=== PATIENT | female | born 1990 | race African-American/Black ===

== ENCOUNTER 2018-05-20 16:04 | Emergency (ER) | payer SELFPAY ==
--- NOTE | 2018-05-20 17:02 | ER ---
Nurse's Notes [facility] Name: Claribel Shultz Age: 27 yrs Sex: Female : 1990 Arrival Date: 05/20/2018 Time: 16:08 Bed 15 Private MD: Diagnosis: Urinary tract infection, site not specified;Urethritis and urethral syndrome Presentation: 05/20 16:42 Presenting complaint: Patient states: "I think I have a UTI". Pt reports burning with aa5 urination x 2 days ago. Transition of care: patient was not received from another setting of care. Onset of symptoms was May 2018. Risk Assessment: Do you want to hurt yourself or someone else? Patient reports no desire to harm self or others. Initial Sepsis Screen: Does the patient meet any 2 criteria? No. Patient's initial sepsis screen is negative. Does the patient have a suspected source of infection? No. Patient's initial sepsis screen is negative. Care prior to arrival: None. 16:42 Acuity: RENE 4 aa5 16:42 Method Of Arrival: Ambulatory aa5 Triage Assessment: 16:46 General: Appears in no apparent distress. comfortable, Behavior is calm, cooperative, bp appropriate for age. 16:46 Pain: Complains of pain in pelvis. 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 - Social history:: Smoking status: Patient/guardian denies using tobacco. - Ebola Screening: : No symptoms or risks identified at this time. - Family history:: not pertinent. - Hospitalizations: : No recent hospitalization is reported. Screenin:52 Abuse screen: Denies threats or abuse. Denies injuries from another. Nutritional bp screening: No deficits noted. Tuberculosis screening: No symptoms or risk factors identified. Fall Risk None identified. Assessment: 16:52 General: SEE TRIAGE NOTE. bp 17:43 Reassessment: PT D/C HOME AMBULATORY, DX WITH UTI. bp Vital Signs: 16:42 BP 134 / 91; Pulse 73; Resp 18 S; Temp 97.6(TE); Pulse Ox 98% on R/A; Weight 100.24 kg aa5 (R); Height 5 ft. 10 in. (177.80 cm) (R); Pain 0/10; 17:44 BP 127 / 89; Pulse 75; Resp 14; Pulse Ox 98% ; bp 16:42 Body Mass Index 31.71 (100.24 kg, 177.80 cm) aa5 ED Course: 16:08 Patient arrived in ED. mr 16:40 Arm band placed on. aa5 16:42 Triage completed. aa5 16:45 Ger Figueroa, RN is Primary Nurse. bp 16:49 Ted Virk MD is Attending Physician. rn 16:52 Patient has correct armband on for positive identification. Bed in low position. Call bp light in reach. Side rails up X2. 16:57 Urine Culture Sent. iw 17:44 No provider procedures requiring assistance completed. Patient did not have IV access bp during this emergency room visit. Administered Medications: No medications were administered Outcome: 17:02 Discharge ordered by MD. rn 17:44 Discharged to home ambulatory. bp 17:44 Condition: stable 17:44 Discharge instructions given to patient, Instructed on discharge instructions, follow up and referral plans. medication usage, Demonstrated understanding of instructions, follow-up care, medications, Prescriptions given X 1. 17:46 Patient left the ED. bp Addendum: 05/23/2018 17:24 Addendum: Culture Results: Positive urine culture. No further action required. Bacteria s s sensitive to prescribed antibiotic. Signatures: Acevedo Nell whitley Virginie Gavin, RN RN Ted Virk MD MD rn Calderon, Audri, RN RN [facility] Mariah Zhang RN RN Ger Figueroa, DELIA RN bp Corrections: (The following items were deleted from the chart) 12 16:47 16:46 General: Appears in no apparent distress. comfortable, Behavior is calm, bp cooperative, appropriate for age, bp 17:13 16:57 Urine Culture+BA.LAB.BRZ drawn and sent. EDIN
--- NOTE | 2018-05-20 17:03 | EDPHYS ---
Physician Documentation [facility] Name: Claribel Shultz Age: 27 yrs Sex: Female : 1990 Arrival Date: 05/20/2018 Time: 16:08 Bed 15 Private MD: ED Physician Ted Virk HPI: 05/20 16:56 This 27 yrs old Black Female presents to ER via Ambulatory with complaints of Urinary rn Problem. 16:57 Onset: The symptoms/episode began/occurred 2 day(s) ago. Modifying factors: The rn symptoms are alleviated by nothing, the symptoms are aggravated by urinating. The patient has not experienced similar symptoms in the past. REports female, but born with male parts, + dysuria and increased frequency with blood when urinates, no flank or abd pain.. 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 - Social history:: Smoking status: Patient/guardian denies using tobacco. - Ebola Screening: : No symptoms or risks identified at this time. - Family history:: not pertinent. - Hospitalizations: : No recent hospitalization is reported. ROS: 16:59 Constitutional: Negative for fever, chills, and weight loss, Abdomen/GI: Negative for rn abdominal pain, nausea, vomiting, diarrhea, and constipation, Back: Negative for injury and pain, : + dysuria and bleeding, no scrotal pain or swelling, no penile pain or swelling Exam: 16:59 Constitutional: This is a well developed, well nourished patient who is awake, alert, rn and in no acute distress. Abdomen/GI: soft, non-tender Vital Signs: 16:42 BP 134 / 91; Pulse 73; Resp 18 S; Temp 97.6(TE); Pulse Ox 98% on R/A; Weight 100.24 kg aa5 (R); Height 5 ft. 10 in. (177.80 cm) (R); Pain 0/10; 17:44 BP 127 / 89; Pulse 75; Resp 14; Pulse Ox 98% ; bp 16:42 Body Mass Index 31.71 (100.24 kg, 177.80 cm) aa5 MDM: 16:49 Patient medically screened. rn 16:59 Differential diagnosis: UTI, urethritis. 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 Counseling: I had a detailed discussion with the patient and/or guardian regarding: the historical points, exam findings, and any diagnostic results supporting the discharge/admit diagnosis, lab results, the need for outpatient follow up, to return to the emergency department if symptoms worsen or persist or if there are any questions or concerns that arise at home. Special discussion: I discussed with the patient/guardian in detail that at this point there is no indication for admission to the hospital. It is understood, however, that if the symptoms persist or worsen the patient needs to return immediately for re-evaluation. 16:59 ED course: Pt reports recent unprotected sex but gets tested frequently, no discharge, rn reports not concerned for STI.. 05/20 16:55 Order name: Urine Culture bp 05/20 16:49 Order name: Urine Dipstick-Ancillary (obtain specimen); Complete Time: 16:55 rn 05/20 16:58 Order name: Urine Dipstick--Ancillary (enter results) bd 05/20 16:58 Order name: Urine --Ancillary (enter results) bd Administered Medications: No medications were administered Disposition: 05/20/18 17:02 Discharged to Home. Impression: Urinary tract infection, site not specified, Urethritis and urethral syndrome. - Condition is Stable. - Discharge Instructions: Urethritis, Adult, Urinary Tract Infection, Adult. - Prescriptions for Cipro 500 mg Oral Tablet - take 1 tablet by ORAL route every 12 hours for 10 days; 20 tablet. - Medication Reconciliation Form, Thank You Letter, Antibiotic Education, Prescription Opioid Use form. - Follow up: Private Physician; When: As needed; Reason: Recheck today's complaints, Re-evaluation by your physician. - Problem is new. - Symptoms have improved. Signatures: Dispatcher [employer] EDMS Ted Virk MD MD rn Calderon, Audri, RN RN aa5 Ger Figueroa RN RN bp Corrections: (The following items were deleted from the chart) 17:00 16:59 Constitutional: Negative for fever, chills, and weight loss, Abdomen/GI: Negative rn for abdominal pain, nausea, vomiting, diarrhea, and constipation, Back: Negative for injury and pain, : + dysuria and bleeding rn 17:13 16:56 Urine Culture+BA.LAB.BRZ ordered. [facility] EDMI 17:46 17:02 05/20/2018 17:02 Discharged to Home. Impression: Urinary tract infection, site bp not specified; Urethritis and urethral syndrome. Condition is Stable. Forms are Medication Reconciliation Form, Thank You Letter, Antibiotic Education, Prescription Opioid Use. Follow up: Private Physician; When: As needed; Reason: Recheck today's complaints, Re-evaluation by your physician. Problem is new. Symptoms have improved. rn
[2018-05-20 18:14] LABS: Urine Blood 3+ (NEG); Urine Glucose NEGATIVE (NEG); Urine Protein 2+ (NEG); Urine Specific Gravity 1.025 (1.005-1.030)
== END 2018-05-20 17:46 | disposition home or self-care (01) ==
LOC: ER 16:04
DX: N39.0 Urinary tract infection, site not specified (principal); N34.2 Other urethritis; N34.3 Urethral syndrome, unspecified
CPT/HCPCS: 81003; 81025; 87077; 87086; 87088; 87186; 99283

== ENCOUNTER 2018-10-28 05:03 | Emergency (ER) | payer SELFPAY ==
--- OUTSIDE RECORDS SUMMARY | 2018-10-28 05:06 | XMS REPORT ---
:1990 Author Organization [facility] Address Unavailable , Allergies, Adverse Reactions, Alerts Allergy Name Reaction Description Start Date Severity Status Provider No Known Allergies Manda Guzman CMA Conditions or Problems Problem Name Problem Onset Status Entry Provider Comment Standard Annotate Code Date Date Description Immunization V15.9 Active Chacha Unspecified update / Meghna PENA personal history presenting hazards to health Preventative V70.0 Active [place] Routine health care / Vahid aguilar [facility] medical examination at a health care facility HYPERTENSION 401.1 Active Chacha Benign /06/22 Meghna PENA essential hypertension VITAMIN D 268.9 Active Chacha Unspecified DEFICIENCY /06/22 Meghna PENA vitamin D deficiency OVERWEIGHT 278.02 Active Chacha Overweight /05 02/11 Meghna PENA Transgender 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 PREP SPIRONOL 1 SPIRONOLACTONE 36246576584 Active Chacha Active ACTONE TABLET Meghna PENA 50 MG BY TABS MOUTH TWO TIMES A DAY ESTRADIO 2 By ESTRADIOL [id number] Active Chacha Active L 2 MG Mouth Meghna PENA ORAL Twice TABLET a Day HECTOR 3 HECTOR 3 2,000 IUS DAILY Active Chacha Active 2,000 Meghna PENA IUS DAILY SPIRONOLACTONE TAKE SPIRONOLACTONE 058249 SPIRONOLACTONE Inactive 50 MG TABS ONE 50 MG TABS TABLET BY MOUTH TWO TIMES A DAY ASPIR-LOW 81 MG 1 By ASPIR-LOW 81 MG 356694 ASPIRIN Inactive ORAL TABLET Mouth ORAL TABLET DELAYED RELEASE Every DELAYED RELEASE Day SPIRONOLACTONE 1 By SPIRONOLACTONE 756210 SPIRONOLACTONE Inactive 100 MG ORAL Mouth 100 MG ORAL TABLET Twice a TABLET Day SPIRONOLACTONE TAKE SPIRONOLACTONE 52833390025 No Chacha Active 50 MG TABS ONE Longer Meghna MD TABLET Active BY MOUTH TWO TIMES A DAY ASPIR-LOW 81 MG 1 By ASPIRIN [id number] No Chacha Active ORAL TABLET Mouth Longer Meghna MD DELAYED RELEASE Every Active Day SPIRONOLACTONE 1 By SPIRONOLACTONE [id number] No Chacha Active 100 MG ORAL Mouth Longer Meghna MD TABLET Twice a Active Day VITAMIN D 1 By ERGOCALCIFEROL [id number] No Chacha Active (ERGOCALCIFEROL Mouth Longer Meghna MD ) [address]79 UNIT Every Active ORAL CAPSULE week Advance Directives Directive Description Start Date DISCUSSED - NO DECISION MADE Immunizations Vaccine Administration Date Value Standard Description hepatitis A immunization given as Hep hepatitis A vaccine, #1 A/Hep B # 1. unspecified formulation hepatitis B vaccine #1 given as Hep hepatitis B vaccine, given A/Hep B # 1. unspecified formulation Human Papilloma Virus given human papilloma virus Vaccine (Gardasil) (HPV 1) vaccine, quadrivalent Administration Date influenza immunization given influenza virus (Flu Vax) has been vaccine, unspecified administered formulation Twinrix, hepatitis A given hepatitis A and inactivated and hepatitis hepatitis B vaccine B (recombinant) vaccine, 1st dose influenza immunization given influenza virus (Flu Vax) has been vaccine, unspecified administered formulation Vital Signs Date Name Value Unit Range Description blood pressure, diastolic 84 mm[Hg] BP morales blood pressure, systolic 133 mm[Hg] BP sys height E&M 70 [in_us] Bdy height pulse rate E&M 68 /min Heart rate temperature E&M 97.7 [degF] Body temperature weight E&M 234 [lb_av] Weight Measured blood pressure, diastolic 90 mm[Hg] BP morales blood pressure, systolic 147 mm[Hg] BP sys height E&M 70 [in_us] Bdy height pulse rate E&M 71 /min Heart rate temperature E&M 97.8 [degF] Body temperature weight E&M 229 [lb_av] Weight Measured Diagnostic Results Date Name Value Unit Range Description Lab Report: Comp. Metabolic Panel (14), Lipid Panel, Testosterone,Free a ... - Chemistry prolactin, serum 17.3 ng/mL 4.0-15.2 Lab Report: CBC With Differential/Platelet, Comp. Metabolic Panel (14), ... - Chemistry thyroid stimulating hormone, serum 0.574 u[iU]/mL 0.450-4.500 Lab Report: Comp. Metabolic Panel (14), Lipid Panel, Testosterone,Free a ... - Chemistry very low density lipoproteins 34 mg/dL 5-40 testosterone, total 142 ng/dL 264-916 Lab Report: HBcAb+HBsAb+HBsAg+HCVAb, CBC With Differential/Platelet, Com ... - Chemistry hepatitis B surface antigen Negative Negative chloride, serum 102 mmol/L 96-106 Lab Report: CBC With Differential/Platelet, Comp. Metabolic Panel (14), ... - Chemistry triiodothyronine resin uptake 30 % 24-39 Append: Patient Navigation-PrEP Education (Session Notes) - Chemistry HIV rapid test results negative Lab Report: HBcAb+HBsAb+HBsAg+HCVAb, CBC With Differential/Platelet, Com ... - Microbiology hepatitis A antibody, total Negative Negative Lab Report: HBcAb+HBsAb+HBsAg+HCVAb, CBC With Differential/Platelet, Com ... - Chemistry urea nitrogen, blood 9 mg/dL 6-20 Lab Report: CBC With Differential/Platelet, Comp. Metabolic Panel (14), ... - Serology HIV-1/HIV-2 Ab, serum Non Reactive Non Reactive Lab Report: HBcAb+HBsAb+HBsAg+HCVAb, CBC With Differential/Platelet, Com ... - Hematology mean corpuscular hemoglobin 32.7 G/DL % 31.5-35.7 concentration, RBC erythrocyte (RBC) count 4.97 X10E6/UL 10*6/mm3 4.14-5.80 Lab Report: HBcAb+HBsAb+HBsAg+HCVAb, CBC With Differential/Platelet, Com ... - Serology hepatitis C antibody, serum <0.1 0.0-0.9 Lab Report: HBcAb+HBsAb+HBsAg+HCVAb, CBC With Differential/Platelet, Com ... - Chemistry Absolute Neutrophils 3.4 X10E3/UL 10*3/uL 1.4-7.0 Lab Report: Comp. Metabolic Panel (14), Lipid Panel, Testosterone,Free a ... - Chemistry LDL cholesterol, serum 107 mg/dL 0-99 estradiol, serum 109.9 pg/mL 7.6-42.6 Lab Report: HBcAb+HBsAb+HBsAg+HCVAb, CBC With Differential/Platelet, Com ... - Chemistry urea nitrogen/creatinine ratio, serum 10 9-20 Lab Report: HBcAb+HBsAb+HBsAg+HCVAb, CBC With Differential/Platelet, Com ... - Hematology mean corpuscular volume, RBC 83 fL 79-97 Lab Report: Comp. Metabolic Panel (14), Lipid Panel, Testosterone,Free a ... - Chemistry HDL cholesterol, serum 52 mg/dL >39 Lab Report: HBcAb+HBsAb+HBsAg+HCVAb, CBC With Differential/Platelet, Com ... - Hematology monocytes as percent of blood leukocytes 11 % Not Estab. Lab Report: HBcAb+HBsAb+HBsAg+HCVAb, CBC With Differential/Platelet, Com ... - Chemistry albumin/globulin ratio, serum 1.8 1.2-2.2 creatinine, serum 0.91 mg/dL 0.76-1.27 Lab Report: Comp. Metabolic Panel (14), Lipid Panel, Testosterone,Free a ... - Chemistry cholesterol, serum 193 mg/dL 100-199 Lab Report: HBcAb+HBsAb+HBsAg+HCVAb, CBC With Differential/Platelet, Com ... - Chemistry bilirubin, serum, total 0.9 mg/dL 0.0-1.2 Lab Report: HBcAb+HBsAb+HBsAg+HCVAb, CBC With Differential/Platelet, Com ... - Hematology Eosinophil Absolute Count 0.3 X10E3/UL 10*3/uL 0.0-0.4 Lab Report: Chlamydia/GC Amplification - Lab chlamydia DNA probe Negative Negative Lab Report: HBcAb+HBsAb+HBsAg+HCVAb, CBC With Differential/Platelet, Com ... - Chemistry aspartate aminotransferase (SGOT), serum 18 U/L 0-40 Lab Report: HBcAb+HBsAb+HBsAg+HCVAb, CBC With Differential/Platelet, Com ... - Hematology red blood cell distribution width 14.9 % 12.3-15.4 leukocyte count, blood 6.3 X10E3/UL 10*3/mm3 3.4-10.8 Lab Report: HBcAb+HBsAb+HBsAg+HCVAb, CBC With Differential/Platelet, Com ... - Chemistry potassium, serum 4.3 mmol/L 3.5-5.2 immature granulocytes, percentage of total cells, 0 % Not Estab. blood albumin, serum 4.6 g/dL 3.5-5.5 Lab Report: HBcAb+HBsAb+HBsAg+HCVAb, CBC With Differential/Platelet, Com ... - Hematology lymphocyte count, blood, automated 1.8 X10E3/UL 10*3/mm3 0.7- 3.1 Lab Report: Chlamydia/GC Amplification - Microbiology Neisseria gonorrhoeae DNA probe Negative Negative Lab Report: HBcAb+HBsAb+HBsAg+HCVAb, CBC With Differential/Platelet, Com ... - Hematology hematocrit, blood 41.3 % 37.5-51.0 Lab Report: HBcAb+HBsAb+HBsAg+HCVAb, CBC With Differential/Platelet, Com ... - Chemistry sodium, serum 144 mmol/L 134-144 Lab Report: HBcAb+HBsAb+HBsAg+HCVAb, CBC With Differential/Platelet, Com ... - Hematology neutrophils as percent of blood leukocytes 55 % Not Estab. basophils as percent of blood leukocytes 1 % Not Estab. Lab Report: HBcAb+HBsAb+HBsAg+HCVAb, CBC With Differential/Platelet, Com ... - Serology rapid plasma reagin antibody, serum Non Reactive Non Reactive Lab Report: HBcAb+HBsAb+HBsAg+HCVAb, CBC With Differential/Platelet, Com ... - Chemistry carbon dioxide, venous blood 25 mmol/L 20-29 Lab Report: HBcAb+HBsAb+HBsAg+HCVAb, CBC With Differential/Platelet, Com ... - Serology hepatitis B core antibody, total Negative Negative Lab Report: Comp. Metabolic Panel (14), Lipid Panel, Testosterone,Free a ... - Chemistry triglyceride, serum, fasting 169 mg/dL 0-149 Lab Report: HBcAb+HBsAb+HBsAg+HCVAb, CBC With Differential/Platelet, Com ... - Chemistry calcium, serum 9.4 mg/dL 8.7-10.2 alanine aminotransferase (SGPT), serum 12 U/L 0-44 Lab Report: CBC With Differential/Platelet, Comp. Metabolic Panel (14), ... - Chemistry free thyroxine index 1.7 1.2-4.9 Lab Report: HBcAb+HBsAb+HBsAg+HCVAb, CBC With Differential/Platelet, Com ... - Hematology mean corpuscular hemoglobin, RBC 27.2 pg 26.6-33.0 Lab Report: HBcAb+HBsAb+HBsAg+HCVAb, CBC With Differential/Platelet, Com ... - Chemistry protein, total, serum 7.2 g/dL 6.0-8.5 alkaline phosphatase, serum 79 U/L 39-117 Lab Report: HBcAb+HBsAb+HBsAg+HCVAb, CBC With Differential/Platelet, Com ... - Hematology hemoglobin, blood 13.5 g/dL 13.0-17.7 lymphocytes as percent of blood leukocytes 28 % Not Estab. Lab Report: CBC With Differential/Platelet, Comp. Metabolic Panel (14), ... - Chemistry hemoglobin A1C, blood, as % of total hemoglobin 5.5 % 4.8-5.6 Lab Report: HBcAb+HBsAb+HBsAg+HCVAb, CBC With Differential/Platelet, Com ... - Genetics/fertility eGFR if 134 mL/min/1.73m2 >59 Lab Report: HBcAb+HBsAb+HBsAg+HCVAb, CBC With Differential/Platelet, Com ... - Hematology basophil count, absolute 0.0 x10E3/uL 0.0-0.2 Lab Report: HBcAb+HBsAb+HBsAg+HCVAb, CBC With Differential/Platelet, Com ... - Chemistry globulin, serum 2.6 1.5-4.5 Estimated Glomerular Filtration Rate (calc) 116 mL/min/1.73m2 > 59 Lab Report: CBC With Differential/Platelet, Comp. Metabolic Panel (14), ... - Chemistry vitamin D 25-hydroxy, serum 16.0 ng/mL 30.0-100.0 Lab Report: Comp. Metabolic Panel (14), Lipid Panel, Testosterone,Free a ... - Chemistry testosterone, serum, free 7.4 pg/mL 9.3-26.5 Lab Report: HBcAb+HBsAb+HBsAg+HCVAb, CBC With Differential/Platelet, Com ... - Serology hepatitis B surface antibody Reactive Lab Report: CBC With Differential/Platelet, Comp. Metabolic Panel (14), ... - Chemistry thyroxine, serum, total 5.7 ug/dL 4.5-12.0 Lab Report: HBcAb+HBsAb+HBsAg+HCVAb, CBC With Differential/Platelet, Com ... - Hematology eosinophils as percent of blood leukocytes 5 % Not Estab. Lab Report: HBcAb+HBsAb+HBsAg+HCVAb, CBC With Differential/Platelet, Com ... - Chemistry blood glucose, random 90 mg/dL 65-99 Lab Report: HBcAb+HBsAb+HBsAg+HCVAb, CBC With Differential/Platelet, Com ... - Hematology monocyte count, blood, automated 0.7 X10E3/UL 10*3/uL 0.1-0.9 platelet count 230 X10E3/UL 10*3/mm3 150-379 Encounters Date Encounter Provider Code Facility Est Patient Detailed - Chacha Coffman MD CPT-29501 [facility] 09:29:38 CDT 87090 Est Patient Detailed - Chacha Coffman MD CPT-42166 [facility] 16:36:09 CDT 38645 Ofc Vst, Est Level III Chacha Coffman MD CPT-10023 [facility] 12:10:03 ORDER DESK CLERK Ofc Vst, New Level III Chacha Coffman MD CPT-62753 [facility] 10:41:37 CDT Procedures Code Procedure Name Date Entry Date Standard Description [facility] Education/Supportive 10:50:19 CDT Counseling CPT-09267 Twinrix - Adult 09:29:51 CDT CPT-74284 Gardasil (HPV) 9 - valent 09:29:51 CDT CPT-34674 INFLUENZA VACCINE QUADRIVALENT 3 YRS PLUS IM 09:29:51 CDT CPT-78436 Admin of Vaccine - Oral / Nasal - Each Add'l 09:29:51 CDT CPT-26408 Admin of Vaccine - Injection - Each Add'l 09:29:51 CDT CPT-58860 Admin of Vaccine - Injection - 1 09:29:51 CDT [facility] Health Education/Supportive 15:25:35 CD[facility] 14:55:14 CDT [facility] 09:56:16 CDT Counseling CPT-13581 Influenza - Adult - Injection 12:10:03 ORDER DESK CLERK CPT-92282 Admin of Vaccine - Injection - 1 12:10:03 ORDER DESK CLERK CPT-57271 Handling of specimen for transfer 10:41:37 CDT CPT-14171 Venipuncture 10:41:37 CDT
[2018-10-28] MEDS ORDERED: MECLIZINE HCL 12.5 MG TAB ONE (05:40)
[2018-10-28] MEDS ORDERED: ONDANSETRON 4 MG (ODT) TAB ONE (05:40)
--- NOTE | 2018-10-28 06:16 | EDPHYS ---
Physician Documentation [facility] Name: Claribel Shultz Age: 28 yrs Sex: Female : 1990 Arrival Date: 10/28/2018 Time: 05:06 Bed 6 Private MD: ED Physician Aman Guzman HPI: 10/28 05:21 This 28 yrs old Black Female presents to ER via Ambulatory with complaints of arian Dizziness, Decreased Appetite, Eye Pain, Nausea. 05:21 The patient presents with dizziness. Onset: The symptoms/episode began/occurred 2 arian day(s) ago. Context: occurred at an unknown location. Modifying factors: The symptoms are alleviated by closing eyes, holding head still, the symptoms are aggravated by movement of head. Associated signs and symptoms: The patient has no apparent associated signs or symptoms. Severity of symptoms: At their worst the symptoms were mild moderate in the emergency department the symptoms are unchanged. Patient's baseline: Neuro: alert and fully oriented. The patient has not experienced similar symptoms in the past. [employer]: 05:18 LMP N/A - gender changed as per patient cc3 Historical: - Allergies: 05:19 No Known Allergies; ak1 - Home Meds: 05:19 None [Active]; ak1 - PMHx: 05:19 None; ak1 - PSHx: 05:19 None; ak1 - Immunization history:: Adult Immunizations unknown. - Social history:: Smoking status: Patient/guardian denies using tobacco. - Ebola Screening: : No symptoms or risks identified at this time. - Family history:: not pertinent. ROS: 05:21 Constitutional: Negative for fever, chills, and weight loss, Eyes: Negative for injury, arian pain, redness, and discharge, Neck: Negative for injury, pain, and swelling, Cardiovascular: Negative for chest pain, palpitations, and edema, Respiratory: Negative for shortness of breath, cough, wheezing, and pleuritic chest pain, Abdomen/GI: Negative for abdominal pain, nausea, vomiting, diarrhea, and constipation, Back: Negative for injury and pain, : Negative for injury, bleeding, discharge, and swelling, MS/Extremity: Negative for injury and deformity, Skin: Negative for injury, rash, and discoloration, Neuro: Negative for headache, weakness, numbness, tingling, and seizure, Psych: Negative for depression, anxiety, suicide ideation, homicidal ideation, and hallucinations, Allergy/Immunology: Negative for hives, rash, and allergies, Endocrine: Negative for neck swelling, polydipsia, polyuria, polyphagia, and marked weight changes, Hematologic/Lymphatic: Negative for swollen nodes, abnormal bleeding, and unusual bruising. 05:21 Eyes: Positive for 05:21 ENT: Positive for sinus pain. 05:21 Neuro: Positive for dizziness, weakness. Exam: 05:21 Constitutional: This is a well developed, well nourished patient who is awake, alert, arian and in no acute distress. Head/Face: Normocephalic, atraumatic. Eyes: Pupils equal round and reactive to light, extra-ocular motions intact. Lids and lashes normal. Conjunctiva and sclera are non-icteric and not injected. Cornea within normal limits. Periorbital areas with no swelling, redness, or edema. ENT: Nares patent. No nasal discharge, no septal abnormalities noted. Tympanic membranes are normal and external auditory canals are clear. Oropharynx with no redness, swelling, or masses, exudates, or evidence of obstruction, uvula midline. Mucous membranes moist. Neck: Trachea midline, no thyromegaly or masses palpated, and no cervical lymphadenopathy. Supple, full range of motion without nuchal rigidity, or vertebral point tenderness. No Meningismus. Chest/axilla: Normal chest wall appearance and motion. Nontender with no deformity. No lesions are appreciated. Cardiovascular: Regular rate and rhythm with a normal S1 and S2. No gallops, murmurs, or rubs. Normal PMI, no JVD. No pulse deficits. Respiratory: Lungs have equal breath sounds bilaterally, clear to auscultation and percussion. No rales, rhonchi or wheezes noted. No increased work of breathing, no retractions or nasal flaring. Abdomen/GI: Soft, non-tender, with normal bowel sounds. No distension or tympany. No guarding or rebound. No evidence of tenderness throughout. Back: No spinal tenderness. No costovertebral tenderness. Full range of motion. Female : Normal external genitalia. Skin: Warm, dry with normal turgor. Normal color with no rashes, no lesions, and no evidence of cellulitis. MS/ Extremity: Pulses equal, no cyanosis. Neurovascular intact. Full, normal range of motion. Neuro: Awake and alert, GCS 15, oriented to person, place, time, and situation. Cranial nerves II-XII grossly intact. Motor strength 5/5 in all extremities. Sensory grossly intact. Cerebellar exam normal. Normal gait. Psych: Awake, alert, with orientation to person, place and time. Behavior, mood, and affect are within normal limits. Vital Signs: 05:17 BP 135 / 86; Pulse 97; Resp 16; Temp 99.1(TE); Pulse Ox 97% on R/A; Weight 102.06 kg ak1 (R); Height 5 ft. 10 in. (177.80 cm) (R); Pain 8/10; 06:30 BP 125 / 74; Pulse 83; Resp 19 S; Temp 99(O); Pulse Ox 100% on R/A; cc3 07:56 BP 127 / 70; Pulse 86; Resp 18; Temp 98.0; Pulse Ox 99% on R/A; ph 05:17 Body Mass Index 32.28 (102.06 kg, 177.80 cm) ak1 MDM: 05:18 Patient medically screened. [facility] 05:23 Data reviewed: vital signs, nurses notes, lab test result(s), radiologic studies, CT arian scan. 10/28 06:27 Order name: Urine Dipstick--Ancillary (enter results) [facility] 10/28 06:28 Order name: Urine Dipstick-Ancillary [facility] 10/28 05:21 Order name: CT Head Brain wo Cont [facility] 10/28 05:25 Order name: EKG; Complete Time: 05:25 [facility] 10/28 05:21 Order name: Urine Dipstick-Ancillary (obtain specimen); Complete Time: 06:33 [facility] 10/28 05:25 Order name: EKG - Nurse/Tech; Complete Time: 05:46 [facility] Administered Medications: 05:25 Drug: Meclizine 50 mg Route: PO; cc3 06:00 Follow up: Response: No adverse reaction; Other; dizziness decreased cc3 05:25 Drug: Zofran 4 mg Route: PO; cc3 06:00 Follow up: Response: No adverse reaction; Nausea is decreased cc3 Disposition: 10/28/18 06:16 Discharged to Home. Impression: Dizziness and giddiness, Vertiginous syndromes in diseases classified elsewhere, unspecified ear. - Condition is Stable. - Discharge Instructions: Benign Positional Vertigo, Dizziness, Near-Syncope, Vertigo, Vertigo, Ilke-vg-Sxxa, Aspirin and Your Heart, Allergies, Kbsl-pj-Icrx, Dizziness, Rpbw-ln-Rnnw. - Prescriptions for Meclizine 25 mg Oral Tablet - take 1 tablet by ORAL route every 8 hours As needed; 30 tablet. Zofran 4 mg Oral Tablet - take 1 tablet by ORAL route every 12 hours As needed; 20 tablet. - Medication Reconciliation Form, Thank You Letter, Antibiotic Education, Prescription Opioid Use form. - Follow up: Private Physician; When: 2 - 3 days; Reason: Recheck today's complaints, Continuance of care, Re-evaluation by your physician. - Problem is new. - Symptoms have improved. Signatures: Dispatcher [employer] EDAman Szymanski MD MD cha Krenek, Amber RN RN ak1 Milli Riley RN RN ph sIabel Marshall cc3 Corrections: (The following items were deleted from the chart) 07:57 06:16 10/28/2018 06:16 Discharged to Home. Impression: Dizziness and giddiness; ph Vertiginous syndromes in diseases classified elsewhere, unspecified ear. Condition is Stable. Discharge Instructions: Benign Positional Vertigo, Dizziness, Near-Syncope, Vertigo, Vertigo, Apyi-nn-Pdjs, Aspirin and Your Heart, Allergies, Nonb-xk-Rxyh, Dizziness, Smid-kl-Vykp. Prescriptions for Meclizine 25 mg Oral Tablet - take 1 tablet by ORAL route every 8 hours As needed; 30 tablet, Zofran 4 mg Oral Tablet - take 1 tablet by ORAL route every 12 hours As needed; 20 tablet. and Forms are Medication Reconciliation Form, Thank You Letter, Antibiotic Education, Prescription Opioid Use. Follow up: Private Physician; When: 2 - 3 days; Reason: Recheck today's complaints, Continuance of care, Re-evaluation by your physician. Problem is new. Symptoms have improved. arian
--- NOTE | 2018-10-28 06:16 | ER ---
Nurse's Notes [facility] Name: Claribel Shultz Age: 28 yrs Sex: Female : 1990 Arrival Date: 10/28/2018 Time: 05:06 Bed 6 Private MD: Diagnosis: Dizziness and giddiness;Vertiginous syndromes in diseases classified elsewhere, unspecified ear Presentation: 10/28 05:17 Presenting complaint: Patient states: headache, dizziness X3days. pt c/o pressure ak1 behind the eyes. Transition of care: patient was not received from another setting of care. Onset of symptoms is unknown. Risk Assessment: Do you want to hurt yourself or someone else? Patient reports no desire to harm self or others. Initial Sepsis Screen: Does the patient meet any 2 criteria? No. Patient's initial sepsis screen is negative. Does the patient have a suspected source of infection? No. Patient's initial sepsis screen is negative. Care prior to arrival: None. 05:17 Method Of Arrival: Ambulatory ak1 05:17 Acuity: RENE 3 ak1 Triage Assessment: 05:20 General: Appears in no apparent distress. Behavior is calm, cooperative. 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 - Social history:: Smoking status: Patient/guardian denies using tobacco. - Ebola Screening: : No symptoms or risks identified at this time. - Family history:: not pertinent. Screenin:18 Abuse screen: Denies threats or abuse. Denies injuries from another. Nutritional cc3 screening: No deficits noted. Tuberculosis screening: No symptoms or risk factors identified. Fall Risk Ambulatory Aid- None/Bed Rest/Nurse Assist (0 pts). Gait- Normal/Bed Rest/Wheelchair (0 pts) Mental Status- Oriented to own ability (0 pts). Assessment: 05:18 General: Appears in no apparent distress. comfortable, Behavior is calm, cooperative, cc3 appropriate for age. Pain: Complains of pain in bilateral eye pain. Neuro: Level of Consciousness is awake, alert, obeys commands, Oriented to person, place, time, situation, Appropriate for age. Cardiovascular: Denies chest pain, Patient's skin is warm and dry. Respiratory: Airway is patent Respiratory effort is even, unlabored, Respiratory pattern is regular, symmetrical. GI: Abdomen is round non-distended. : No signs and/or symptoms were reported regarding the genitourinary system. EENT: Eyes no abnormality found. Sclera/Cornea are clear in bilateral. Derm: No signs and/or symptoms reported regarding the dermatologic system. Musculoskeletal: Circulation, motion, and sensation intact. Range of motion: intact in all extremities. 06:05 Reassessment: Patient appears in no apparent distress at this time. Patient and/or cc3 family updated on plan of care and expected duration. Pain level reassessed. Patient is alert, oriented x 3, equal unlabored respirations, skin warm/dry/pink. Patient came back from CT scan department, awaiting result. 06:16 Reassessment: Patient appears in no apparent distress at this time. Patient and/or cc3 family updated on plan of care and expected duration. Pain level reassessed. Patient is alert, oriented x 3, equal unlabored respirations, skin warm/dry/pink. Dr. Guzman ordered patient for discharge home once CT scan result is available. Patient denies pain at this time. Patient states symptoms have improved. 07:56 Reassessment: Patient appears in no apparent distress at this time. Patient and/or ph family updated on plan of care and expected duration. Pain level reassessed. Patient is alert, oriented x 3, equal unlabored respirations, skin warm/dry/pink. Pt d/c home w. prescriptions Patient states symptoms have improved. Vital Signs: 05:17 BP 135 / 86; Pulse 97; Resp 16; Temp 99.1(TE); Pulse Ox 97% on R/A; Weight 102.06 kg ak1 (R); Height 5 ft. 10 in. (177.80 cm) (R); Pain 8/10; 06:30 BP 125 / 74; Pulse 83; Resp 19 S; Temp 99(O); Pulse Ox 100% on R/A; cc3 07:56 BP 127 / 70; Pulse 86; Resp 18; Temp 98.0; Pulse Ox 99% on R/A; ph 05:17 Body Mass Index 32.28 (102.06 kg, 177.80 cm) ak1 ED Course: 05:06 Patient arrived in ED. es 05:18 Aman Guzman MD is Attending Physician. arian 05:18 Isabel Marshall is Primary Nurse. cc3 05:18 Triage completed. ak1 05:19 Arm band placed on Patient placed in an exam room, on a stretcher, on pulse oximetry, ak1 Patient notified of wait time. 05:19 Patient has correct armband on for positive identification. Bed in low position. Call ak1 light in reach. Side rails up X 1. Pulse ox on. NIBP on. 06:10 CT completed. Patient tolerated procedure well. Patient moved to CT via stretcher. Patient moved back from CT. 06:16 CT Head Brain wo Cont In Process Unspecified. EDMS 07:00 Report given to RN Milli and DELIA Cyr. cc3 07:46 Milli Riley RN is Primary Nurse. ph 07:54 No provider procedures requiring assistance completed. Patient did not have IV access ph during this emergency room visit. Administered Medications: 05:25 Drug: Meclizine 50 mg Route: PO; cc3 06:00 Follow up: Response: No adverse reaction; Other; dizziness decreased cc3 05:25 Drug: Zofran 4 mg Route: PO; cc3 06:00 Follow up: Response: No adverse reaction; Nausea is decreased cc3 Outcome: 06:16 Discharge ordered by . [facility] 07:55 Discharged to home ambulatory. ph 07:55 Condition: improved 07:55 Discharge instructions given to patient, Instructed on discharge instructions, follow up and referral plans. medication usage, Demonstrated understanding of instructions, follow-up care, medications, Prescriptions given X 2. 07:57 Patient left the ED. ph Signatures: Dispatcher [employer] EDNY Aman Guzman MD MD cha Salyer, Loy Gilmore Amber RN RN ak Milli Riley, DELIA RN Isabel Marshall cc3
[2018-10-28 07:06] LABS: Urine Blood NEGATIVE (NEG); Urine Glucose NEGATIVE (NEG); Urine Protein 1+ (NEG); Urine pH 5.5 (5.0-7.0)
--- NOTE | 2018-10-28 09:24 | RAD REPORT ---
EXAM DESCRIPTION: CT - Head Brain Wo Cont - 10/28/2018 9:02 am CLINICAL HISTORY: The patient is 28 years old and is Female; DIZZINESS TECHNIQUE: Axial computed tomography images of the head/brain without intravenous contrast. Sagitt al and coronal reformatted images were created and reviewed. This CT exam was performed using one o r more of the following dose reduction techniques: automated exposure control, adjustment of the mA and/or kV according to patient size, and/or use of iterative reconstruction technique. COMPARISON: No relevant prior studies available. FINDINGS: BRAIN: Unremarkable. The petersen-white matter differentiation is preserved . No hemorrhag e. No significant white matter disease. No edema. No extra-axial fluid collections. VENTRICLES: Unremarkable. No ventriculomegaly. BONES/JOINTS: No acute fracture. SOFT TISSUES: Unremarkable. SINUSES: Unremarkable as visualized. No acute sinusitis. MASTOID AIR CELLS: Unremarkable as visualized. No mastoid effusion. IMPRESSION: No acute intracranial findings. Electronically signed by: Carmen Chamberlain MD 10/28/2018 6:17 AM CDT Due to temporary technical issues with the PACS/Fluency reporting system, reports are being signed by the in house radiologist as a courtesy to ensure prompt reporting. The interpreting radiologist is f ully responsible for the content of the report.
--- NOTE | 2018-10-28 10:26 | EKG ---
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
== END 2018-10-28 07:57 | disposition home or self-care (01) ==
LOC: ER 05:03
DX: R42 Dizziness and giddiness (principal); H82.9 Vertiginous syndromes in diseases classified elsewhere, unspecified ear
CPT/HCPCS: 70450; 81003; 93005; 99284

== ENCOUNTER 2019-07-17 23:43 | Emergency (ER) | payer SELFPAY ==
--- OUTSIDE RECORDS SUMMARY | 2019-07-17 23:45 | XMS REPORT ---
:1990 Author Organization [facility] Address Unavailable , Allergies, Adverse Reactions, Alerts Allergy Name Reaction Description Start Date Severity Status Provider No Known Allergies Manda Guzman CMA Conditions or Problems Problem Name Problem Onset Status Entry Provider Comment Standard Annotate Code Date Date Description Immunization V15.9 Active Chacha Unspecified update / Meghna PENA personal history presenting hazards to health Preventative V70.0 Active [place] Routine health care / Vahid aguilar [facility] medical examination at a health care facility HYPERTENSION 401.1 Active Chacha Benign /06/22 Meghna PENA essential hypertension VITAMIN D 268.9 Active Chacha Unspecified DEFICIENCY /06/22 Meghna PENA vitamin D deficiency OVERWEIGHT 278.02 Active Chacha Overweight /05 02/11 Meghna PENA Transgender V49.89 2013 Chacha Other 12/15 Meghna PENA specified conditions influencing health status GENDER 302.85 Inactive Chacha Gender IDENTITY 02/11 Meghna PEAN identity DISORDER, 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 PREP SPIRONOL 1 SPIRONOLACTONE 20619020220 Active Chacha Active ACTONE TABLET Meghna PENA 50 MG BY TABS MOUTH TWO TIMES A DAY ESTRADIO 2 By ESTRADIOL 47803431368 Active Chacha Active L 2 MG Mouth Meghna EPNA ORAL Twice TABLET a Day HECTOR 3 HECTOR 3 2,000 IUS DAILY Active Chacha Active 2,000 Meghna PENA IUS DAILY SPIRONOLACTONE TAKE SPIRONOLACTONE 805236 SPIRONOLACTONE Inactive 50 MG TABS ONE 50 MG TABS TABLET BY MOUTH TWO TIMES A DAY ASPIR-LOW 81 MG 1 By ASPIR-LOW 81 MG 137860 ASPIRIN Inactive ORAL TABLET Mouth ORAL TABLET DELAYED RELEASE Every DELAYED RELEASE Day SPIRONOLACTONE 1 By SPIRONOLACTONE 132996 SPIRONOLACTONE Inactive 100 MG ORAL Mouth 100 MG ORAL TABLET Twice a TABLET Day SPIRONOLACTONE TAKE SPIRONOLACTONE 87633119064 No Chacha Active 50 MG TABS ONE Longer Meghna MD TABLET Active BY MOUTH TWO TIMES A DAY ASPIR-LOW 81 MG 1 By ASPIRIN [id number] No Chacha Active ORAL TABLET Mouth Longer Meghna MD DELAYED RELEASE Every Active Day SPIRONOLACTONE 1 By SPIRONOLACTONE 61835287646 No Chacha Active 100 MG ORAL Mouth Longer Meghna MD TABLET Twice a Active Day VITAMIN D 1 By ERGOCALCIFEROL [id number] No Chacha Active (ERGOCALCIFEROL Mouth Longer Meghna MD ) 93557 UNIT Every Active ORAL CAPSULE week Advance [...] Est Patient Detailed - Chacha Coffman MD CPT-00888 [facility] Adult Medicine 09:29:38 CDT 18460 Est Patient Detailed - Chacha Coffman MD CPT-84780 [facility] Adult Medicine 16:36:09 CDT 77809 Ofc Vst, Est Level III Chacha Coffman MD CPT-42390 [facility] Adult Medicine 12:10:03 [employer]LL [employer]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 Ofc Vst, New Level III Chacha Coffman MD CPT-96848 [facility] Adult Medicine 10:41:37 CDT Procedures Code Procedure Name Date Entry Date Standard Description [facility] Education/Supportive 10:50:19 CDT Counseling CPT-40987 Twinrix - Adult 09:29:51 CDT CPT-41235 Gardasil (HPV) 9 - valent 09:29:51 CDT CPT-62893 INFLUENZA VACCINE QUADRIVALENT 3 YRS PLUS IM 09:29:51 CDT CPT-93201 Admin of Vaccine - Oral / Nasal - Each Add'l 09:29:51 CDT CPT-18693 Admin of Vaccine - Injection - Each Add'l 09:29:51 CDT CPT-95167 Admin of Vaccine - Injection - 1 09:29:51 CDT [facility] Health Education/Supportive 15:25:35 CDT [facility] 14:55:14 CDT [facility]/Supportive 09:56:16 CDT Counseling CPT-72125 Influenza - Adult - Injection 12:10:03 [employer]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
[2019-07-18] MEDS ORDERED: NA CHLORIDE 0.9% 1,000 ML ONE (00:40)
[2019-07-18 01:23] LABS: Absolute Lymphocytes (CBC) 1.4 K/uL (0.7-4.9); Basophils % 0.4 % (0-1.3); Hematocrit 40.5 % (36.0-45.0); Lymphocytes % 12.5 % (15.3-44.8); RBC Red Blood Cell Count 5.03 M/uL (3.86-4.86)
[2019-07-18 01:34] LABS: Bilirubin Direct 0.2 mg/dL (0-0.2); Bilirubin Total 0.8 mg/dL (0.2-1.0); Protein, Total 8.8 g/dL (6.4-8.2)
[2019-07-18] MEDS ORDERED: CEFTRIAXONE/SWI 1gm 1 GM/10 ML SYR ONE (02:11)
[2019-07-18] MEDS ORDERED: POTASSIUM 25 MEQ EFFERV TAB ONE (02:11)
[2019-07-18] MEDS ORDERED: ONDANSETRON 4 MG/2 ML VIAL ONE (02:24)
--- NOTE | 2019-07-18 02:40 | ER ---
Nurse's Notes [facility] Name: Claribel Shultz Age: 29 yrs Sex: Female : 1990 Arrival Date: 07/17/2019 Time: 23:45 Bed 30 Private MD: Diagnosis: Acute pharyngitis Presentation: 07/17 23:59 Presenting complaint: Patient states: she woke up Friday dizzy, has no appetite, has bb diarrhea and feels dehydrated, she fell from the dizziness and is feeling some minor pain under left rib area. Transition of care: patient was not received from another setting of care. Onset of symptoms was July 11, 2019. Risk Assessment: Do you want to hurt yourself or someone else? Patient reports no desire to harm self or others. Initial Sepsis Screen: Does the patient meet any 2 criteria? No. Patient's initial sepsis screen is negative. Does the patient have a suspected source of infection? No. Patient's initial sepsis screen is negative. Care prior to arrival: None. 23:59 Method Of Arrival: Ambulatory bb 23:59 Acuity: RENE 3 bb Triage Assessment: 07/18 00:45 General: Appears in no apparent distress. well groomed, Behavior is calm. 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 - Coronavirus screen:: The patient has NOT traveled to [place], [place], or [place] in the past 14 days. Proceed with normal triage process as indicated. - Social history:: Smoking status: Patient denies any tobacco usage or history of. - Ebola Screening: : No symptoms or risks identified at this time. Screenin:45 Abuse screen: Denies threats or abuse. Nutritional screening: No deficits noted. jv1 Tuberculosis screening: No symptoms or risk factors identified. 02:34 Fall Risk Fall in past 12 months (25 points). jv1 Assessment: 00:15 General: Appears in no apparent distress. comfortable, well groomed, well developed, jv1 Behavior is calm, cooperative, appropriate for age. Pain: Complains of pain in under left rib Pain does not radiate. Pain currently is 5 out of 10 on a pain scale. Quality of pain is described as aching, tender. Neuro: Level of Consciousness is awake, alert, obeys commands, Oriented to person, place, time, situation, Appropriate for age. Cardiovascular: Denies chest pain, Heart tones S1 S2 Capillary refill < 3 seconds. Respiratory: Airway is patent Respiratory effort is even, unlabored, Respiratory pattern is regular, symmetrical, Breath sounds are clear bilaterally. GI: Abdomen is round non-distended, Bowel sounds present X 4 quads. Abd is soft and non tender X 4 quads. : No signs and/or symptoms were reported regarding the genitourinary system. EENT: No signs and/or symptoms were reported regarding the EENT system. Derm: No signs and/or symptoms reported regarding the dermatologic system. Musculoskeletal: Circulation, motion, and sensation intact. Capillary refill < 3 seconds. 01:15 Reassessment: Patient appears in no apparent distress at this time. No changes from jv1 previously documented assessment. Patient and/or family updated on plan of care and expected duration. Pain level reassessed. Patient is alert, oriented x 3, equal unlabored respirations, skin warm/dry/pink. 02:32 Reassessment: No changes from previously documented assessment. Patient and/or family jv1 updated on plan of care and expected duration. Pain level reassessed. Patient is alert, oriented x 3, equal unlabored respirations, skin warm/dry/pink. Patient denies pain at this time. Patient states feeling better. Patient states symptoms have improved. Vital Signs: 00:02 BP 106 / 92; Pulse 98; Resp 16 S; Temp 99.3(O); Pulse Ox 100% on R/A; Weight 104.33 kg bb (R); Height 5 ft. 10 in. (177.80 cm) (R); Pain 4/10; 02:33 BP 132 / 80; Pulse 90; Resp 18; Temp 99.2; Pulse Ox 99% ; Pain 4/10; jv1 02:33 BP 125 / 82; Pulse 84; Resp 18; Temp 99.2; Pulse Ox 100% ; Pain 2/10; jv1 00:02 Body Mass Index 33.00 (104.33 kg, 177.80 cm) bb ED Course: 07/17 23:45 Patient arrived in ED. jg7 23:48 Faizan Nixon MD is Attending Physician. tw4 23:57 Strep Sent. jp3 23:57 Flu Sent. jp3 23:58 Flu and/or RSV swab sent to lab. Strep swab sent to lab. Patient maintains SpO2 jp3 saturation greater than 95% on room air. 23:59 Patient has correct armband on for positive identification. Placed in gown. Bed in low jp3 position. Call light in reach. Side rails up X 1. Verbal reassurance given. Pulse ox on. NIBP on. 07/18 00:02 Triage completed. bb 00:05 Arm band placed on Patient placed in an exam room, on a stretcher, on pulse oximetry. bb 02:34 No provider procedures requiring assistance completed. jv1 03:06 IV discontinued, intact, bleeding controlled, No redness/swelling at site. Pressure jv1 dressing applied. Administered Medications: 00:38 Drug: NS 0.9% 1000 ml Route: IV; Rate: 1 bolus; Site: left antecubital; jv1 02:05 Follow up: Response: No adverse reaction; IV Status: Completed infusion jv1 02:12 Drug: Potassium Effervescent Tablet 50 mEq Route: PO; jv1 02:32 Follow up: Response: No adverse reaction jv1 02:13 Drug: Rocephin - (cefTRIAXone) 1 grams Route: IVPB; Infused Over: 30 mins; Site: left jv1 antecubital; 02:31 Follow up: Response: No adverse reaction; IV Status: Completed infusion jv1 02:22 Drug: Zofran 4 mg Route: IVP; Site: left antecubital; jv1 02:53 Follow up: Response: No adverse reaction; Nausea is decreased jv1 Outcome: 02:39 Discharge ordered by . tw4 03:05 Discharged to home ambulatory, with family. jv1 03:05 Condition: improved 03:05 Discharge instructions given to patient, family. 03:06 Patient left the ED. jv1 Signatures: Jennifer Gonzalez, RN RN bb Faizan Nixon MD MD tw4 Boyd Condon jp3 Renee Juárez RN RN jv1 Claribel Garcia jg7 Corrections: (The following items were deleted from the chart) 00:14 00:16 NS 0.9% 1000 ml IV at 1 bolus in right antecubital bb bb
--- NOTE | 2019-07-18 02:40 | EDPHYS ---
Physician Documentation [facility] Name: Claribel Shultz Age: 29 yrs Sex: Female : 1990 Arrival Date: 07/17/2019 Time: 23:45 Bed 30 Private MD: ED Physician Faizan Nixon HPI: 07/18 05:17 This 29 yrs old Black Female presents to ER via Ambulatory with complaints of Flu tw4 Symptoms. 05:17 The patient or guardian reports cough, that is intermittent, flu symptoms, myalgias, no tw4 appetite. Onset: The symptoms/episode began/occurred yesterday. Modifying factors: The symptoms are alleviated by nothing. the symptoms are aggravated by nothing. Associated signs and symptoms: Pertinent positives: diarrhea, DIZZINESS. Severity of symptoms: At their worst the symptoms were mild in the emergency department the symptoms are unchanged. The patient has not experienced similar symptoms in the past. 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 - Coronavirus screen:: The patient has NOT traveled to [place], [place], or [place] in the past 14 days. Proceed with normal triage process as indicated. - Social history:: Smoking status: Patient denies any tobacco usage or history of. - Ebola Screening: : No symptoms or risks identified at this time. ROS: 05:17 Eyes: Negative for injury, pain, redness, and discharge, ENT: Negative for injury, tw4 pain, and discharge, Neck: Negative for injury, pain, and swelling, Cardiovascular: Negative for chest pain, palpitations, and edema, Respiratory: Negative for shortness of breath, cough, wheezing, and pleuritic chest pain, Back: Negative for injury and pain, MS/Extremity: Negative for injury and deformity, Skin: Negative for injury, rash, and discoloration. 05:17 Constitutional: Positive for fatigue, malaise. 05:17 Abdomen/GI: Positive for diarrhea, Negative for abdominal pain, nausea and vomiting, nausea, vomiting, and diarrhea, nausea, vomiting, constipation, abdominal cramps, abdominal distension, anorexia, dysphagia, hematemesis, black/tarry stool, rectal pain, rectal bleeding. 05:17 Neuro: Positive for dizziness, near syncope, Negative for altered mental status, seizure activity, speech changes. Exam: 05:17 Constitutional: This is a well developed, well nourished patient who is awake, alert, tw4 and in no acute distress. Head/Face: Normocephalic, atraumatic. 05:17 Neck: Trachea midline, no thyromegaly or masses palpated, and no cervical lymphadenopathy. Supple, full range of motion without nuchal rigidity, or vertebral point tenderness. No Meningismus. Chest/axilla: Normal chest wall appearance and motion. Nontender with no deformity. No lesions are appreciated. Cardiovascular: Regular rate and rhythm with a normal S1 and S2. No gallops, murmurs, or rubs. Normal PMI, no JVD. No pulse deficits. Respiratory: Lungs have equal breath sounds bilaterally, clear to auscultation and percussion. No rales, rhonchi or wheezes noted. No increased work of breathing, no retractions or nasal flaring. Abdomen/GI: Soft, non-tender, with normal bowel sounds. No distension or tympany. No guarding or rebound. No evidence of tenderness throughout. Back: No spinal tenderness. No costovertebral tenderness. Full range of motion. Skin: Warm, dry with normal turgor. Normal color with no rashes, no lesions, and no evidence of cellulitis. MS/ Extremity: Pulses equal, no cyanosis. Neurovascular intact. Full, normal range of motion. Neuro: Awake and alert, GCS 15, oriented to person, place, time, and situation. Cranial nerves II-XII grossly intact. Motor strength 5/5 in all extremities. Sensory grossly intact. Cerebellar exam normal. Normal gait. 05:17 ENT: External ear(s): are unremarkable, Ear canal(s): are normal, TM's: are normal, Posterior pharynx: erythema, that is mild. Vital Signs: 00:02 BP 106 / 92; Pulse 98; Resp 16 S; Temp 99.3(O); Pulse Ox 100% on R/A; Weight 104.33 kg bb (R); Height 5 ft. 10 in. (177.80 cm) (R); Pain 4/10; 02:33 BP 132 / 80; Pulse 90; Resp 18; Temp 99.2; Pulse Ox 99% ; Pain 4/10; jv1 02:33 BP 125 / 82; Pulse 84; Resp 18; Temp 99.2; Pulse Ox 100% ; Pain 2/10; jv1 00:02 Body Mass Index 33.00 (104.33 kg, 177.80 cm) bb MDM: 07/17 23:48 Patient medically screened. 07/18 05:17 Differential diagnosis: bronchitis, flu, URI. Antibiotic administration: The patient is tw4 discharged and will get outpatient antibiotics, Amoxicillin. Data reviewed: vital signs, nurses notes. Data reviewed: lab test result(s), Flu: negative STREP POSITIVE. Data interpreted: Pulse oximetry: Interpretation: normal. Counseling: I had a detailed discussion with the patient and/or guardian regarding: lab results. Special discussion: I discussed with the patient/guardian in detail that at this point there is no indication for admission to the hospital. It is understood, however, that if the symptoms persist or worsen the patient needs to return immediately for re-evaluation. 07/17 23:48 Order name: Flu; Complete Time: 01:50 07/18 01:55 Interpretation: Within normal limits. 07/17 23:48 Order name: Strep; Complete Time: 01:50 07/18 01:54 Interpretation: Abnormal: GP A STREP SC \T\nbsp; GROUP A STREP SCREEN-- \T\nbsp; \T\nbsp; tw4 POSITIVE. 07/18 00:02 Order name: Basic Metabolic Panel; Complete Time: 01:50 07/18 01:53 Interpretation: Normal except: NA 134; CRE 1.41; GLUC 150; K 3.0; GFR 54. 07/18 00:02 Order name: CBC with Diff; Complete Time: :50 07/18 01:54 Interpretation: Normal except: RBC 5.03; MCH 26.9. 07/18 00:03 Order name: Creatinine for Radiology; Complete Time: 01:50 07/18 00:03 Order name: Hepatic Function; Complete Time: 01:50 07/18 01:54 Interpretation: Normal except: AST 135; ALT 165; ALK 216; TP 8.8; A/G 0.5; GLOB 5.8; tw4 ALB 3.0. 07/18 00:03 Order name: Lipase; Complete Time: 01:50 tw4 07/18 01:55 Interpretation: Within normal limits: LIP 105. tw4 07/18 00:03 Order name: IV Saline Lock; Complete Time: 00:34 tw4 07/18 00:03 Order name: Labs collected and sent; Complete Time: 00:35 tw4 Administered Medications: 00:38 Drug: NS 0.9% 1000 ml Route: IV; Rate: 1 bolus; Site: left antecubital; jv1 02:05 Follow up: Response: No adverse reaction; IV Status: Completed infusion jv1 02:12 Drug: Potassium Effervescent Tablet 50 mEq Route: PO; jv1 02:32 Follow up: Response: No adverse reaction jv1 02:13 Drug: Rocephin - (cefTRIAXone) 1 grams Route: IVPB; Infused Over: 30 mins; Site: left jv1 antecubital; 02:31 Follow up: Response: No adverse reaction; IV Status: Completed infusion jv1 02:22 Drug: Zofran 4 mg Route: IVP; Site: left antecubital; jv1 02:53 Follow up: Response: No adverse reaction; Nausea is decreased jv1 Disposition: 07/18/19 02:39 Discharged to Home. Impression: Acute pharyngitis. - Condition is Stable. - Discharge Instructions: Pharyngitis, Sore Throat, [id number]. - Prescriptions for Amoxicillin 500 mg Oral Capsule - take 1 capsule by ORAL route every 8 hours for 10 days; 30 tablet. - Medication Reconciliation Form, Thank You Letter, Antibiotic Education, Prescription Opioid Use form. - Follow up: Private Physician; When: Upon discharge from the Emergency Department; Reason: If symptoms return, Recheck today's complaints, Continuance of care, Re-evaluation by your physician. - Problem is new. - Symptoms have improved. Signatures: Dispatcher [employer] Jennifer Dunne, RN RN Faizan Huerta MD MD tw4 Renee Juárez RN RN jv1 Corrections: (The following items were deleted from the chart) 03:06 02:39 07/18/2019 02:39 Discharged to Home. Impression: Acute pharyngitis. Condition is jv1 Stable. Forms are Medication Reconciliation Form, Thank You Letter, Antibiotic Education, Prescription Opioid Use. Follow up: Private Physician; When: Upon discharge from the Emergency Department; Reason: If symptoms return, Recheck today's complaints, Continuance of care, Re-evaluation by your physician. Problem is new. Symptoms have improved. tw4
[2019-07-18 03:18] VITALS: O2SAT 100
[2019-07-18 03:21] VITALS: BP 125/82; TEMP 99.2
== END 2019-07-18 03:06 | disposition home or self-care (01) ==
LOC: ER 23:43
DX: J02.9 Acute pharyngitis, unspecified (principal)
CPT/HCPCS: 36415; 80048; 80076; 83690; 85025; 87081; 87804; 96361; 96365; 96375; 99284; J0696; J2405; J7030